=== PATIENT | male | born 1995 | race Caucasian/White ===

== ENCOUNTER 2018-06-09 15:05 | Emergency (ER) | payer SELFPAY ==
[~2018-06-09] VITALS: Ht 172.7 cm; Wt 85.0 kg
[2018-06-09] MEDS ORDERED: KETOROLAC 60MG/2ML VIAL IM ONE (16:00)
[2018-06-09 18:07] VITALS: BP 117/63
== END 2018-06-09 18:07 | disposition home or self-care (01) ==
LOC: ER 15:05
DX: S09.8XXA Other specified injuries of head, initial encounter (principal); V49.50XA Passenger injured in collision with unspecified motor vehicles in traffic accident, initial encounter; Y93.9 Activity, unspecified; Y92.410 Unspecified street and highway as the place of occurrence of the external cause
CPT/HCPCS: 70450; 70486; 96372; 99284; J1885